=== PATIENT | male | born 1960 | race Caucasian/White ===

== ENCOUNTER → 2020-12-14 14:35 | Outpatient (BNVA) | payer MEDICARE, MEDICAID, SELFPAY | PROVIDERS: PCP Family Medicine; Visit Provider Nurse Practitioner Family | DX: S20.469A Insect bite (nonvenomous) of unspecified back wall of thorax, initial encounter (principal); W57.XXXA Bitten or stung by nonvenomous insect and other nonvenomous arthropods, initial encounter | CPT/HCPCS: 86000; 86618; 86666; 86757 ==

== ENCOUNTER → 2021-03-17 11:52 | Outpatient (BNVA) | payer MEDICARE, MEDICAID, SELFPAY | PROVIDERS: PCP Family Medicine; Visit Provider Internal Medicine Pulmonary Disease | DX: R06.02 Shortness of breath (principal) | CPT/HCPCS: 82785; 85025; 85651; 86003; 86140; 86235; 86431 ==

== ENCOUNTER → 2021-04-02 15:36 | Outpatient (BNVA) | payer MEDICARE, MEDICAID, SELFPAY | PROVIDERS: PCP Family Medicine; Visit Provider Internal Medicine Pulmonary Disease | DX: Z20.822 Contact with and (suspected) exposure to COVID-19 (principal) | CPT/HCPCS: 87635 ==

== ENCOUNTER 2021-05-20 15:34 | Outpatient (CLI) | payer MEDICARE, MEDICAID, SELFPAY ==
--- NOTE | 2021-05-20 15:46 | XR_ITS ---
WS: [id number] LATERAL CERVICAL SPINE: 3 view. Lateral radiographs are performed in upright neutral, flexion and extension to the patient's toleranc e. HISTORY: M54.2 - Cervicalgia COMPARISON: None available. Straightening of the normal cervical lordosis. Very slight reversal at the C5-6 level. Moderate disc space narrowing and moderate osteophytic ridging at C5, C6 and C7. With flexion and extension there i s no instability. Very little movement during flexion and extension. No prevertebral soft tissue jess a. XR/XR cervical spine fl/ex [id number] IMPRESSION: 1. No cervical spine instability with flexion and extension. 2. Moderate degenerative disc disease and osteophytic ridging at C5, C6 and C7 .
== END 2021-05-20 15:35 | disposition home or self-care (01) ==
PROVIDERS: PCP Family Medicine; Visit Provider Nurse Practitioner Family
DX: R20.0 Anesthesia of skin (principal); M50.322 Other cervical disc degeneration at C5-C6 level; M25.78 Osteophyte, vertebrae
CPT/HCPCS: 72040; 87635

== ENCOUNTER 2021-05-27 08:55 | Outpatient (CLI) | payer MEDICARE, MEDICAID, SELFPAY ==
--- NOTE | 2021-05-27 09:30 | PFTS_ITS ---
Date of Study:05/27/21 Date of Dictation: 06/05/2021 MECHANICS: Pre-bronchodilator postbronchodilator forced vital capacity (FVC) is normal. Prebronchodilator forced expiratory volume in one second (FEV1) is normal. FEV1/FVC is normal. There is no postbronchodilator study FLOW VOLUME LOOP: Normal LUNG VOLUMES: Total lung capacity (TLC) is normal. Residual volume (RV) is normal. DIFFUSING CAPACITY FOR CARBON MONOXIDE:normal. . INTERPRETATION: The PFTs are normal. MTDD
== END 2021-05-27 08:56 | disposition home or self-care (01) ==
LOC: RT 08:57
PROVIDERS: PCP Family Medicine; Visit Provider Internal Medicine Pulmonary Disease
DX: J44.9 Chronic obstructive pulmonary disease, unspecified (principal)
CPT/HCPCS: 94010; 94726; 94729

== ENCOUNTER → 2021-07-06 09:48 | Outpatient (BNVA) | payer MEDICARE, MEDICAID, SELFPAY | PROVIDERS: PCP Family Medicine; Visit Provider Family Medicine | DX: R06.02 Shortness of breath (principal); R05.9 Cough, unspecified; J44.1 Chronic obstructive pulmonary disease with (acute) exacerbation; Z20.822 Contact with and (suspected) exposure to COVID-19 | CPT/HCPCS: 87635 ==

== ENCOUNTER 2021-07-16 06:00 | Outpatient (RCR) | payer MEDICARE, MEDICAID, SELFPAY | END 2021-07-27 23:59 | disposition home or self-care (01) | LOC: WPT 06:00 | PROVIDERS: PCP Family Medicine; Referring Provider Nurse Practitioner Family; Visit Provider Nurse Practitioner Family | DX: M50.30 Other cervical disc degeneration, unspecified cervical region (principal) | CPT/HCPCS: 97110; 97163 ==

== ENCOUNTER 2021-07-28 06:00 | Outpatient (RCR) | payer MEDICARE, MEDICAID, SELFPAY | END 2021-08-27 23:59 | disposition home or self-care (01) | LOC: WPT 06:00 | PROVIDERS: PCP Family Medicine; Referring Provider Nurse Practitioner Family; Visit Provider Nurse Practitioner Family | DX: M50.30 Other cervical disc degeneration, unspecified cervical region (principal) | CPT/HCPCS: 97110; 97530 ==

== ENCOUNTER → 2021-11-09 15:16 | Outpatient (BNVA) | payer MEDICARE, MEDICAID, SELFPAY | PROVIDERS: PCP Family Medicine; Visit Provider Internal Medicine | DX: R07.9 Chest pain, unspecified (principal); I10 Essential (primary) hypertension; E66.9 Obesity, unspecified; Z68.34 Body mass index [BMI] 34.0-34.9, adult; Z98.61 Coronary angioplasty status; E11.9 Type 2 diabetes mellitus without complications; J44.9 Chronic obstructive pulmonary disease, unspecified; E78.2 Mixed hyperlipidemia; Z87.891 Personal history of nicotine dependence | CPT/HCPCS: 99214 ==

== ENCOUNTER 2021-12-13 05:23 | Day surgery (SDC) | payer MEDICARE, MEDICAID, SELFPAY ==
[2021-12-09 12:05] VITALS: BMI 31.0
[2021-12-13 06:09] VITALS: BP 172/113; PULSE 99; RESP 18; TEMP 36.1; O2SAT 96
[2021-12-13] MEDS: sodium chloride 0.9% 1,000 ML 30 ML IV (06:14)
--- NOTE | 2021-12-13 06:41 | ANES.PREANE2 ---
Pre-Anesthetic Assessment Height/Weight: Height 1.73 m Weight 92.533 kg Temp Pulse Resp BP Pulse Ox 97 F L 99 18 172/113 96 12/13/21 06:09 12/13/21 06:09 12/13/21 06:09 12/13/21 06:09 12/13/21 06:09 Preop Diagnosis: Dysphagia and history of polyps. Operation Date: 12/13/21 07:00 Proposed Procedures p EGD 24543/R13.10(Not Applicable) - Timbo Chu MD s Colonoscopy G0105/Z86.010(Not Applicable) - Timbo Chu MD Familial anesthetic complications: none Last intake: Intake Last Liquid Date 12/12/21 Last Liquid Time 22:00 Last Solid Date 12/11/21 Last Solid Time 18:00 Social Tobacco smokeless tobacco (chew) pt. states he put a chew in 0200 removed Airway Submandibular: within normal limits Cervical ROM: within normal limits Mallampati: Class II Dentition: other (very poor dentition multipe missing) Pulmonary Chronic Obstructive Pulmonary Disease and Sleep Apnea (non-compliant) CV/HEM Coronary Artery Disease (stents x 3 last in 2019), Hypertension (patient removed self off of BP meds. States he is controlled at home.) and Myocardial Infarction None reported Hepatic fatty liver per patient. GI Gastroesophageal Reflux Disease abdominal pain, N/V. Metabolic Diabetes Mellitus and Thyroid Disease Neuropsych Neuropathy and None reported Anesthetic Plan ASA status: 3 Anesthesia: MAC Medications/Allergies Home Medications Medication Instructions Recorded Confirmed Last Taken Type aspirin 81 mg tablet,delayed 81 mg PO DAILY 02/20/20 12/09/21 12/12/21 History release (Aspir-) levothyroxine 50 mcg tablet 50 mcg PO DAILY 02/20/20 12/09/21 12/12/21 History nitroglycerin 0.4 mg sublingual 0.4 mg SUBLINGUAL Q5M PRN 02/20/20 12/09/21 Unknown History tablet (Nitrostat) insulin degludec 100 unit/mL (3 100 unit SUBCUT DAILY ml 03/02/20 12/09/21 12/12/21 History mL) subcutaneous pen (Tresiba FlexTouch U-100 insulin) famotidine 20 mg tablet 20 mg PO DAILY 12/11/20 12/09/21 12/11/21 History budesonide-formoterol HFA 160 2 puff INHALATION BID #10.2 g 09/15/21 12/09/21 12/11/21 Rx mcg-4.5 mcg/actuation aerosol inhaler (Symbicort) insulin lispro 100 unit/mL See Rx Instructions .ROUTE .COMPLEX 12/09/21 12/13/21 12/10/21 History subcutaneous pen (Humalog KwikPen (U-100) Insulin) Allergies Allergy/AdvReac Type Severity Reaction Status Date / Time No Known Allergies Allergy Verified 11/18/21 14:46 Current Medications Generic Name Dose Route Start Last Admin Trade Name Freq PRN Reason Stop Dose Admin Sodium Chloride 1,000 mls @ 30 mls/hr 12/13/21 06:00 12/13/21 06:14 Sodium Chloride 0.9% IV 12/14/21 05:59 30 mls/hr .Q24H RODY Administration PFSH Anesthesia Medical History Asthma Atherosclerotic cardiovascular disease Conjunctivitis COPD (chronic obstructive pulmonary disease) DDD (degenerative disc disease), cervical Diabetes HTN (hypertension) Hyperlipemia, mixed Hypothyroidism Neck pain Obesity Puncture wound of left foot Rhus dermatitis Right arm numbness Tick bite Surgical History S/P cataract extraction S/P PTCA (percutaneous transluminal coronary angioplasty) Family History Father Pericarditis Social History Smoking and tobacco status: former smoker Quit status (tobacco): has quit using tobacco Year quit tobacco: 1996 Former quit date comment: Hx of 0.5 PPD x 10 years Smoking risk assessment/counseling performed?: No Alcohol intake: never Counseling given: No Counseling given: No Lives independently: Yes Household members: spouse Marital status: service: No Current occupational status: disabled History of recent travel: No Current gender identity: Male Data Anesthesia Cardiac Studies: No Data to Display
--- NOTE | 2021-12-13 07:11 | P.HP_ITS ---
Same Day Surgery H&P Indication for Procedure/HPI DATE OF PROCEDURE: December 13, 2021 CHIEF COMPLAINT/INDICATIONFOR SURGICAL PROCEDURE: Dysphagia and history of colon polyps PREOP DIAGNOSIS: Dysphagia and history of polyps. PLANNED PROCEDURE: Operation Date: 12/13/21 07:00 Proposed Procedures p EGD 46378/R13.10(Not Applicable) - Timbo Chu MD s Colonoscopy G0105/Z86.010(Not Applicable) - Timbo Chu MD Medications/Allergies* Home Medications Medication Instructions Recorded Confirmed Type aspirin 81 mg tablet,delayed 81 mg PO DAILY 02/20/20 12/09/21 History release (Aspir-) levothyroxine 50 mcg tablet 50 mcg PO DAILY 02/20/20 12/09/21 History nitroglycerin 0.4 mg sublingual 0.4 mg SUBLINGUAL Q5M PRN 02/20/20 12/09/21 History tablet (Nitrostat) insulin degludec 100 unit/mL (3 100 unit SUBCUT DAILY ml 03/02/20 12/09/21 History mL) subcutaneous pen (Tresiba FlexTouch U-100 insulin) famotidine 20 mg tablet 20 mg PO DAILY 12/11/20 12/09/21 History insulin lispro 100 unit/mL See Rx Instructions .ROUTE .COMPLEX 12/09/21 12/13/21 History subcutaneous pen (Humalog KwikPen (U-100) Insulin) Allergies/Adverse Reactions Allergy/AdvReac Type Severity Reaction Status Date / Time No Known Allergies Allergy Verified 11/18/21 14:46 Current Medications: Generic Name Dose Route Start Last Admin Trade Name Freq PRN Reason Stop Dose Admin Sodium Chloride 1,000 mls @ 30 mls/hr 12/13/21 06:00 12/13/21 06:14 Sodium Chloride 0.9% IV 12/14/21 05:59 30 mls/hr .Q24H RODY Administration Pertinent History/Comorbid Conditions* Medical History (Updated 11/18/21 @ 15:04 by Timbo Chu MD) Asthma Atherosclerotic cardiovascular disease Conjunctivitis COPD (chronic obstructive pulmonary disease) DDD (degenerative disc disease), cervical Diabetes HTN (hypertension) Hyperlipemia, mixed Hypothyroidism Neck pain Obesity Puncture wound of left foot Rhus dermatitis Right arm numbness Tick bite Surgical History (Updated 11/16/20 @ 14:59 by GABRIELE Gray) S/P cataract extraction S/P PTCA (percutaneous transluminal coronary angioplasty) Family History (Updated 09/08/20 @ 13:09 by Bindu Huitron LPN) Father Pericarditis Father Social History Smoking and tobacco status: former smoker Quit status (tobacco): has quit using tobacco Year quit tobacco: 1996 Former quit date comment: Hx of 0.5 PPD x 10 years Smoking risk assessment/counseling performed?: No Alcohol intake: never Counseling given: No Counseling given: No Lives independently: Yes Household members: spouse Marital status: service: No Current occupational status: disabled History of recent travel: No Current gender identity: Male Pertinent Exam Findings alert, oriented x 3, clear to auscultation bilaterally, regular rate & rhythm, operative site marked and procedure specific exam findings Recommendations Surgery/Procedure today Coding Level of Care Code 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
[2021-12-13 07:40] VITALS: BP 102/66; PULSE 92; RESP 16; TEMP 36.1; O2SAT 92
[2021-12-13 07:54] VITALS: BP 118/82; PULSE 90; RESP 18; O2SAT 95
--- NOTE | 2021-12-13 14:14 | ANE.PACU2 ---
Inpatient post-anesthesia follow up: Airway intact: Yes Vital signs: Temperature 97 F Pulse Rate 90 Respiratory Rate 18 Blood Pressure 118/82 Pulse Oximetry 95 Oxygen Delivery Me thod Room Air Oxygen Flow Rate Fraction of Inspir ed Oxygen Hydration adequate: Yes Nausea and vomiting: No Pain level: 1 Mental status: Baseline
[2021-12-14 08:05] LABS: H. Pylori / CLO Test Positive
== END 2021-12-13 08:18 | disposition home or self-care (01) ==
PROVIDERS: Visit Provider Internal Medicine
PROC: 0DJ08ZZ Inspection of Upper Intestinal Tract, Via Natural or Artificial Opening Endoscopic (ICD-10-PCS; CPT 43235; principal; 2021-12-13 07:00)
PROC: 0DJD8ZZ Inspection of Lower Intestinal Tract, Via Natural or Artificial Opening Endoscopic (ICD-10-PCS; CPT 45378; 2021-12-13 07:00)
DX: R13.10 Dysphagia, unspecified (principal); Z86.010 Personal history of colon polyps; Z79.82 Long term (current) use of aspirin; Z79.4 Long term (current) use of insulin; J44.9 Chronic obstructive pulmonary disease, unspecified; I10 Essential (primary) hypertension; E78.2 Mixed hyperlipidemia; E03.9 Hypothyroidism, unspecified; E66.9 Obesity, unspecified; Z68.31 Body mass index [BMI] 31.0-31.9, adult; K29.71 Gastritis, unspecified, with bleeding; K25.9 Gastric ulcer, unspecified as acute or chronic, without hemorrhage or perforation; F17.220 Nicotine dependence, chewing tobacco, uncomplicated; G47.30 Sleep apnea, unspecified; Z91.19 Patient's noncompliance with other medical treatment and regimen; I25.10 Atherosclerotic heart disease of native coronary artery without angina pectoris; Z95.5 Presence of coronary angioplasty implant and graft; I25.2 Old myocardial infarction; K21.9 Gastro-esophageal reflux disease without esophagitis; E11.40 Type 2 diabetes mellitus with diabetic neuropathy, unspecified; M19.90 Unspecified osteoarthritis, unspecified site
CPT/HCPCS: 43239; 45378; 87077; J2704; J7030

== ENCOUNTER → 2022-05-10 15:34 | Outpatient (BNVA) | payer MEDICARE, MEDICAID, SELFPAY | PROVIDERS: Absent Provider Nurse Practitioner Family; PCP Nurse Practitioner Family; Visit Provider Internal Medicine | DX: R07.9 Chest pain, unspecified (principal); I10 Essential (primary) hypertension; E66.9 Obesity, unspecified; Z68.34 Body mass index [BMI] 34.0-34.9, adult; Z98.61 Coronary angioplasty status; E11.9 Type 2 diabetes mellitus without complications; Z79.4 Long term (current) use of insulin; J44.9 Chronic obstructive pulmonary disease, unspecified; E78.2 Mixed hyperlipidemia; Z87.891 Personal history of nicotine dependence | CPT/HCPCS: 99213; 99214 ==

== ENCOUNTER → 2022-11-11 10:45 | Outpatient (BNVA) | payer MEDICARE, SELFPAY | PROVIDERS: PCP Nurse Practitioner Family; Visit Provider Nurse Practitioner Family | DX: I25.10 Atherosclerotic heart disease of native coronary artery without angina pectoris (principal); I10 Essential (primary) hypertension; Z87.891 Personal history of nicotine dependence | CPT/HCPCS: 99214 ==

== ENCOUNTER 2023-01-30 12:30 | Outpatient (CLI) | payer MEDICARE, MEDICAID, SELFPAY ==
--- NOTE | 2023-01-30 12:15 | USR_ITS ---
PROCEDURE INFORMATION: Exam: US Duplex Upper Extremity Arteries Exam date and time: 01/30/2023 1:20 PM Age: 62 years old Clinical indication: Other: Different bilat BP; Additional info: Unequal blood pressure in arms TECHNIQUE: Imaging protocol: Real-time ultrasound scan of the arteries of the bilateral upper extremities with 2-D oates scale, color Doppler flow and spectral waveform analysis. Complete exam. COMPARISON: No relevant prior studies available. FINDINGS: Right subclavian artery: Normal waveform. Peak velocity 85 cm/s. No visible plaque. Right axillary artery: Normal waveform. Peak velocity 94 cm/s no visible plaque. Right brachial artery: Normal waveform. Peak velocity 124 cm/second. No visible plaque. Right radial artery: Normal waveform. Peak velocity 66 cm/s. No visible plaque. Right ulnar artery: Normal waveform. Peak velocity 77 cm/second. No visible plaque. Left subclavian artery: Normal waveform. Peak velocity 69 cm/s. No visible plaque. Left axillary artery: Morphologically normal waveform with spectral aliasing. Peak velocity 138 cm/s. No visible plaque. Left brachial artery: Normal waveform. Peak velocity 114 cm/second. No visible plaque. Left radial artery: Normal waveform. Peak velocity 71 cm/s. No visible plaque. Left ulnar artery: Normal waveform. Peak velocity 69 cm/second. No visible plaque. US/[place] [id number] IMPRESSION: 1. No sign of hemodynamically significant arterial stenosis beyond the subclavian arteries. 2. Morphologically normal waveform with spectral aliasing and near doubling velocity from left subclavian to left axillary artery suggests stenosis at the thoracic inlet. Correlate with differential blood pressure (measurements not obtained on this exam). Consider repeat ultrasound with compressive postural maneuvers.
== END 2023-01-30 12:31 | disposition home or self-care (01) ==
PROVIDERS: PCP Nurse Practitioner Family; Visit Provider Nurse Practitioner Family
DX: R09.89 Other specified symptoms and signs involving the circulatory and respiratory systems (principal)
CPT/HCPCS: 93930

== ENCOUNTER → 2024-01-02 14:24 | Outpatient (BNVA) | payer MEDICARE, SELFPAY | PROVIDERS: PCP Nurse Practitioner Family; Visit Provider Nurse Practitioner Family | DX: R39.9 Unspecified symptoms and signs involving the genitourinary system (principal) | CPT/HCPCS: 81003; 87086 ==

== ENCOUNTER 2024-12-30 07:38 | Outpatient (CLI) | payer MEDICARE, MEDICAID, SELFPAY ==
--- NOTE | 2024-12-30 08:30 | CT_ITS ---
WS: [id number] CT ABDOMEN WITHOUT CONTRAST HISTORY: R10.12 - Left upper quadrant pain Contiguous single phase 5 mm axial imaging performed to the abdomen. Oral contrast has not been provided. Coronal and sagittal reformats are submitted. All CT scans at [facility] use at least one of these dose optimization techniques: automated exposure control; mA and/or kV adjustment per patient size (includes targeted exams where dose is matched to clinical indication); or iterative reconstruction. IV CONTRAST: None Oral contrast: No DLP: 556.12 mGy.cm COMPARISON: 06/15/2010 Lower thorax: Lung bases are clear. Heart is normal size. Very small hiatal hernia. Liver/biliary system: Normal size with no intrahepatic dilatation. Gallbladder: Cholecystectomy. Pancreas: Normal size pancreas and pancreatic duct. No adjacent inflammation. Spleen: Normal size spleen. No mass or infarct. Splenule in the splenic hilum. Additional similar masses in the anterior LEFT upper quadrant were also present on the exam from 2009. Consistent with multiple splenules. Adrenal glands: Normal. Right kidney: Mild perinephric stranding with no obstruction or calcification. Left kidney: Mild perinephric stranding with no obstruction or calcification. Slightly greater stranding around the LEFT kidney. Aorta: Mild atherosclerosis with no aneurysm. Lymphadenopathy: None. Free fluid: None. GI tract: No GI tract obstruction. Stomach is well distended. Duodenal diverticulum is not as well visualized on today's exam. Increased fecal retention in the transverse colon. The appendix is visualized and normal. Numerous diverticula beginning in the splenic flexure. Abdominal wall: Unremarkable abdominal wall. No hernia. Visualized osseous structures: Unremarkable. CT/CT abdomen wo con [id number] IMPRESSION: 1. Status post cholecystectomy. 2. Mild perinephric stranding surrounding the LEFT kidney has progressed since 2009. This can be seen with chronic or acute changes. Consider evaluation for urinary tract infection. Lesser amount of stranding around the RIGHT kidney. 3. LEFT upper quadrant splenules. 4. Diverticula noted beginning in the sigmoid flexure. 5. Mild atherosclerosis aorta.
== END 2024-12-30 07:39 | disposition home or self-care (01) ==
PROVIDERS: PCP Nurse Practitioner Family; Visit Provider Nurse Practitioner Family
DX: R10.12 Left upper quadrant pain (principal); Z90.49 Acquired absence of other specified parts of digestive tract; R93.422 Abnormal radiologic findings on diagnostic imaging of left kidney; R93.421 Abnormal radiologic findings on diagnostic imaging of right kidney; R93.5 Abnormal findings on diagnostic imaging of other abdominal regions, including retroperitoneum; K57.30 Diverticulosis of large intestine without perforation or abscess without bleeding; I70.0 Atherosclerosis of aorta; K44.9 Diaphragmatic hernia without obstruction or gangrene; R93.89 Abnormal findings on diagnostic imaging of other specified body structures
CPT/HCPCS: 74150

== ENCOUNTER → 2025-01-13 16:20 | Outpatient (BNVA) | payer MEDICARE, MEDICAID, SELFPAY | PROVIDERS: PCP Nurse Practitioner Family; Visit Provider Nurse Practitioner Family | DX: R39.9 Unspecified symptoms and signs involving the genitourinary system (principal) | CPT/HCPCS: 81003; 87086 ==

== ENCOUNTER → 2025-01-15 16:12 | Outpatient (BNVA) | payer MEDICARE, MEDICAID, SELFPAY | PROVIDERS: PCP Nurse Practitioner Family; Visit Provider Nurse Practitioner Family | DX: R39.9 Unspecified symptoms and signs involving the genitourinary system (principal) | CPT/HCPCS: 81003; 87086 ==

== ENCOUNTER → 2025-04-22 15:41 | Outpatient (BNVA) | payer MEDICARE, MEDICAID, SELFPAY | PROVIDERS: PCP Nurse Practitioner Family; Visit Provider Nurse Practitioner Family | DX: Z12.5 Encounter for screening for malignant neoplasm of prostate (principal); I10 Essential (primary) hypertension; E11.9 Type 2 diabetes mellitus without complications; E55.9 Vitamin D deficiency, unspecified; K31.84 Gastroparesis | CPT/HCPCS: 80053; 80061; 81003; 82306; 83036; 84443; 85025; G0103 ==

== ENCOUNTER → 2025-05-22 16:35 | Outpatient (BNVA) | payer MEDICARE, MEDICAID, SELFPAY | PROVIDERS: PCP Nurse Practitioner Family; Visit Provider Nurse Practitioner Family | DX: M25.819 Other specified joint disorders, unspecified shoulder (principal); M19.012 Primary osteoarthritis, left shoulder | CPT/HCPCS: 73030 ==

== ENCOUNTER 2025-06-26 14:00 | Outpatient (RCR) | payer MEDICARE, MEDICAID, SELFPAY | END 2025-06-27 23:59 | disposition home or self-care (01) | LOC: WPT 14:00 | PROVIDERS: PCP Nurse Practitioner Family; Visit Provider Nurse Practitioner Family | DX: M75.42 Impingement syndrome of left shoulder (principal); M25.512 Pain in left shoulder; G89.29 Other chronic pain | CPT/HCPCS: 97110; 97112; 97140; 97162; 97530 ==

== ENCOUNTER 2025-07-08 14:48 | Outpatient (RCR) | payer MEDICARE, MEDICAID, SELFPAY | END 2025-07-09 08:22 | disposition home or self-care (01) | LOC: WPT 14:48 | PROVIDERS: PCP Nurse Practitioner Family; Visit Provider Nurse Practitioner Family | DX: M75.42 Impingement syndrome of left shoulder (principal) | CPT/HCPCS: 97110; 97112; 97530 ==

== ENCOUNTER → 2025-07-10 10:19 | Outpatient (BNVA) | payer MEDICARE, MEDICAID, SELFPAY | PROVIDERS: PCP Nurse Practitioner Family; Visit Provider Nurse Practitioner Family | DX: I10 Essential (primary) hypertension (principal); E78.2 Mixed hyperlipidemia | CPT/HCPCS: 80061 ==